=== PATIENT | male | born 1985 | race Caucasian/White ===

== ENCOUNTER 2017-11-04 07:22 | Emergency (ER) | payer OTHER ==
[~2017-11-04] VITALS: Ht 193 cm; Wt 103.9 kg
[2017-11-04 09:00] LABS: HEMATOCRIT 43.3 % (38.0-50.0); HEMOGLOBIN 14.9 G/DL (12.5-16.6); MCH 29.9 PG (29.0-34.0); MCHC 34.4 G/DL (30.0-36.0); MCV 86.8 FL (86-99); RBC DIS.WIDTH-CV 12.6 % (11.8-14.6); RBC DIS.WIDTH-SD 39.8 % (39-53); RED BLOOD COUNT 4.99 M/uL (4.00-5.50)
[2017-11-04 09:02] LABS: CARBON DIOXIDE (BICARBONATE) 31.7 MEQ/L (20-31)
[2017-11-04 09:10] LABS: CHLORIDE 100 mEq/L (99-109); POTASSIUM 4.8 mEq/L (3.7-5.4); SODIUM 135 mEq/L (136-147)
[2017-11-04 09:12] LABS: GLUCOSE 294 mg/dL (70-99)
[2017-11-04 09:15] LABS: APPEARANCE CLEAR ((CLEAR)); BILIRUBIN NEGATIVE; BLOOD NEGATIVE; COLOR YELLOW ((YELLOW)); GLUCOSE (STRIP) >=500; KETONES 20; LEUKOCYTES NEGATIVE; NITRITE NEGATIVE; PROTEIN (STRIP) NEGATIVE; SPECIFIC GRAVITY 1.032 (1.000-1.030); UCUL ADDED? NO; UROBILINOGEN 0.2 MG/DL (0.2-1.0)
[2017-11-04 09:16] LABS: CREATININE 1.1 mg/dL (0.6-1.3); GFR ESTIMATE (CALCULATED) > 59 mL/min/ (58.99-99999)
[2017-11-04 09:17] LABS: UREA NITROGEN (BUN) 14 mg/dL (9-23)
[2017-11-04 09:57] LABS: PLAT.SUFFICIENCY DECREASED; PLATELET COUNT 141 K/uL (156-360)
[2017-11-04 11:30] VITALS: BP 118/77
== END 2017-11-04 11:43 | disposition home or self-care (01) ==
LOC: EME 07:22
PROVIDERS: Emergency Medicine
DX: E11.65 Type 2 diabetes mellitus with hyperglycemia (principal); Z79.4 Long term (current) use of insulin; Z88.0 Allergy status to penicillin
CPT/HCPCS: 80048; 81003; 82803; 82948; 85027; 99281; 99284; J2405; J7030